=== PATIENT | female | born 1985 | race Caucasian/White ===

== ENCOUNTER 2017-04-22 20:17 | Emergency (ER) | payer OTHER ==
[2017-04-22 20:46] VITALS: BP 164/82; PULSE 87; TEMP 98.6; BMI 23.0
--- NOTE | 2017-04-22 20:46 | PDOC ---
Rapid Medical Evaluation Time Seen by Provider: 04/22/17 20:39 Medical Evaluation: Allergies Allergy/AdvReac Type Severity Reaction Status Date / Time No Known Allergies Allergy Verified 07/14/14 11:28 04/22/17 20:40 I have performed a brief in-person person evaluation of the patient. The patient presents with a chief complaint of chest tightness and left side of chest pain constantly for 8 days ago aftere lifting laundry bags.Reports feeling tired when she walks.Also states pain is non radiating and is not associated by nausea, dizziness or shortness of breath. Took alleve with relieve of the pain Pertinent physical exam findings: NAD lungs clear bilaterally heart s1s2, tenderness with palpation in mid chest ext; no edema I have ordered the following: ekg, urine hcg The patient will proceed to the ED for further evaluation.
--- NOTE | 2017-04-22 22:36 | PDOC ---
History of Present Illness - General Chief Complaint: Pain Stated Complaint: PAIN Time Seen by Provider: 04/22/17 20:39 History Source: Patient - History of Present Illness Initial Comments: 04/22/17 23:56 30-year-old female complaining of left side chest pain started 8 days ago after accidentally hitting the chest with a shopping cart while doing laundry. Patient was seen at [facility] emergency [facility] 4 days ago with negative chest x-ray EKG and workup. Advised to take at Aleve when necessary. Patient reports no improvement in pain. Her last dose of Aleve was at 12 PM. denies diaphoresis, headache, nausea, vomiting, abdominal pain, Denies OCP use, prolonged sitting, recent travel, inactivity. No past medical history Past History - Past Medical History Allergies/Adverse Reactions: Allergies Allergy/AdvReac Type Severity Reaction Status Date / Time No Known Allergies Allergy Verified 04/22/17 20:43 Home Medications: Ambulatory Orders NK [No Known Home Medication] 07/14/14 COPD: No Other medical history: Pt denies - Suicide/Smoking/Psychosocial Hx Smoking Status: No Smoking History: Never smoked Have you smoked in the past 12 months: No Number of Cigarettes Smoked Daily: 0 Information on smoking cessation initiated: No Hx Alcohol Use: No Drug/Substance Use Hx: No Substance Use Type: None Review of Systems - Review of Systems Able to Perform ROS?: Yes Is the patient limited Yoruba proficient: No Constitutional: No: Symptoms Reported, See HPI, Chills, Diaphoresis, Fever, Loss of Appetite, Malaise, Night Sweats, Weakness, Weight Stable, Unintentional Wgt. Loss, Unexplained wgt Loss, Other HEENTM: No: Symptoms Reported, See HPI, Eye Pain, Blurred Vision, Tearing, Recent change in vision, Double Vision, Cataracts, Ear Pain, Ocular Prothesis, Ear Discharge, Nose Pain, Nose Congestion, Tinnitus, Nose Bleeding, Hearing Loss , Throat Pain, Throat Swelling, Mouth Pain, Dental Problems, Difficulty Swallowing, Mouth Swelling, Other Respiratory: No: Symptoms reported, See HPI, Cough, Orthopnea, Shortness of Breath, SOB with Exertion, SOB at Rest, Stridor, Wheezing, Productive cough, Hemoptysis, Other Cardiac (ROS): Yes: Chest Pain. No: Symptoms Reported, See HPI, Edema, Irregular Heart Rate, Lightheadedness, Palpitations, Syncope, Chest Tightness, Other ABD/GI: No: Symptoms Reported, See HPI, Abdominal Distended, Abd. Pain w/ defecation, Blood Streaked Bowels, Constipated, Diarrhea, Difficulty Swallowing , Nausea, Poor Appetite, Poor Fluid Intake, Rectal Bleeding, Vomiting, Indigestion, Abdominal cramping, Tarry Stools, Other *Physical Exam - Vital Signs Last Vital Signs Temp Pulse Resp BP Pulse Ox 98.6 F 87 18 164/82 100 04/22/17 20:43 04/22/17 20:43 04/22/17 20:43 04/22/17 20:43 04/22/17 20:43 - Physical Exam General Appearance: Yes: Appropriately Dressed Respiratory/Chest: positive: Chest Tender (LEFT MID CHEST REPRODUCIBLE PAIN), Lungs Clear, Normal Breath Sounds. negative: Respiratory Distress, Accessory Muscle Use, Labored Respiration, Rapid RR, Decreased Breath Sounds, Paradoxal Breathing, Crackles, Rales, Rhonchi, Stridor, Wheezing, Hyperresonant, Dullness , Plerual Rub, Other Cardiovascular: positive: Regular Rhythm, Regular Rate Gastrointestinal/Abdominal: positive: Normal Bowel Sounds, Soft Integumentary: positive: Normal Color, Dry, Warm Neurologic: positive: Fully Oriented, Normal Mood/Affect ED Treatment Course - ADDITIONAL ORDERS Additional order review: Laboratory Results 04/22/17 20:59 Urine HCG, Qual Negative Medical Decision Making - Medical Decision Making Costochondritis P: NSAIDS EKG CHest xray 04/23/17 00:01 Chest x-ray reviewed with Dr. Valadez. Early right lower lobe pneumonia reported in x-ray. Patient asymptomatic with no fever, shortness of breath, URI symptoms , cough. Advised patient to have close follow-up with primary care doctor.. For worsening symptoms to return to the emergency department. Advised patient to take Aleve [id number] with food. *DC/Admit/Observation/Transfer Diagnosis at time of Disposition: Costochondral chest pain - Discharge Dispostion Disposition: HOME - Referrals Referrals: Prerna Golden [Primary Care Provider] - - Patient Instructions Printed Discharge Instructions: Costochondritis Additional Instructions: apply heat pack and warm compress to the area. take aleve every 12 hours . take it with food follow up with your doctor as soon possible. - Post Discharge Activity
--- NOTE | 2017-04-23 14:16 | EKG ---
Test Reason : Blood Pressure : / mmHG Vent. Rate : 072 BPM Atrial Rate : 072 BPM P-R Int : 218 ms QRS Dur : 084 ms QT Int : 408 ms P-R-T Axes : 068 035 014 degrees QTc Int : 446 ms SINUS RHYTHM WITH 1ST DEGREE A-V BLOCK OTHERWISE NORMAL ECG NO PREVIOUS ECGS AVAILABLE Confirmed by MD Ministerio, Yg ([id number]) on 04/23/2017 2:16:16 PM Referred By: Confirmed By:Yg Mandel MD
== END 2017-04-23 00:32 | disposition home or self-care (01) ==
LOC: JER 20:17
DX: R07.1 Chest pain on breathing (principal)
CPT/HCPCS: 71046-TC-FY; 84703; 93005; 93010; 99283-25

== ENCOUNTER 2021-11-22 12:41 | Emergency (ER) | payer OTHER ==
[2021-11-22 12:51] VITALS: BP 137/72; PULSE 75; RESP 20; TEMP 98.4; BMI 23.3
[2021-11-22] MEDS ORDERED: KETOROLAC TROMETHAMINE 30 MG/1 ML VIAL IM ONE (14:29)
[2021-11-22] MEDS ORDERED: KETOROLAC TROMETHAMINE 30 MG/1 ML VIAL ONE (14:48)
== END 2021-11-22 16:41 | disposition home or self-care (01) ==
LOC: JERFT 12:41
PROC: 3E0233Z Introduction of Anti-inflammatory into Muscle, Percutaneous Approach (ICD-10-PCS; principal; 2021-11-22)
DX: M54.31 Sciatica, right side (principal)
CPT/HCPCS: 93971-TC; 99284-25

== ENCOUNTER 2022-08-25 13:31 | Emergency (ER) | payer OTHER ==
[2022-08-25 13:46] VITALS: BP 129/85; PULSE 66; RESP 18; TEMP 97.6; BMI 23.1
[2022-08-25] MEDS ORDERED: KETOROLAC TROMETHAMINE 30 MG/1 ML VIAL IM ONE (15:12)
[2022-08-25] MEDS ORDERED: LIDOCAINE 5% TOPICAL PATCH TP ONE (15:12)
[2022-08-25] MEDS ORDERED: ACETAMINOPHEN 500 MG TABLET (FP) PO ONE (15:12)
[2022-08-25] MEDS ORDERED: LIDOCAINE 5% TOPICAL PATCH ONE (15:17)
[2022-08-25] MEDS ORDERED: KETOROLAC TROMETHAMINE 30 MG/1 ML VIAL ONE (15:17)
[2022-08-25] MEDS ORDERED: ACETAMINOPHEN 500 MG TABLET (FP) ONE (15:18)
[2022-08-25] MEDS ORDERED: LIDOCAINE PATCH REMOVAL MC SCH (22:00)
== END 2022-08-25 16:12 | disposition home or self-care (01) ==
LOC: JERFT 13:31 → JER 13:31 → JERFT 16:12
PROC: 3E0233Z Introduction of Anti-inflammatory into Muscle, Percutaneous Approach (ICD-10-PCS; principal; 2022-08-25)
DX: M79.604 Pain in right leg (principal); M54.41 Lumbago with sciatica, right side
CPT/HCPCS: 84703; 99284-25

== ENCOUNTER 2022-09-27 09:27 | Emergency (ER) | payer OTHER ==
[2022-09-27 09:34] VITALS: BP 141/65; RESP 16; BMI 23.1
[2022-09-27] MEDS ORDERED: ACETAMINOPHEN 500 MG TABLET (FP) PO ONE (10:25)
[2022-09-27] MEDS ORDERED: ACETAMINOPHEN 500 MG TABLET (FP) ONE (10:34)
[2022-09-27 11:01] VITALS: PULSE 100; TEMP 99.4
== END 2022-09-27 11:19 | disposition home or self-care (01) ==
LOC: JERFT 09:27
DX: R05.9 Cough, unspecified (principal); R09.81 Nasal congestion; R09.3 Abnormal sputum; R50.9 Fever, unspecified; R06.02 Shortness of breath; R09.89 Other specified symptoms and signs involving the circulatory and respiratory systems; J98.01 Acute bronchospasm; J06.9 Acute upper respiratory infection, unspecified; Z20.822 Contact with and (suspected) exposure to COVID-19
CPT/HCPCS: 0241U-QW; 99283-25